=== PATIENT | female | born 1990 | race Caucasian/White ===

== ENCOUNTER 2021-03-17 10:51 | Inpatient (IN) | payer MEDICAID, SELFPAY ==
[~2021-03-17] VITALS: Ht 165.1 cm; Wt 101.6 kg
[2021-03-17] MEDS ORDERED: LACTATED RINGERS 500 ML IV SCH (12:00)
[2021-03-17] MEDS ORDERED: LACTATED RINGERS 1,000 ML IV SCH (12:00)
[2021-03-17] MEDS ORDERED: METHYLERGONOVINE 0.2 MG/ML AMP IM PRN ×2 (12:00→21:45)
[2021-03-17] MEDS ORDERED: OXYTOCIN 10 UNITS/ML VIAL IM SCH (12:00)
[2021-03-17] MEDS ORDERED: CARBOPROST 250 MCG/ML AMP IM PRN (12:00)
[2021-03-17] MEDS ORDERED: PREN-497 PO (12:47)
[2021-03-17 12:55] LABS: BILIRUBIN,URINE NEGATIVE (NEGATIVE); BLOOD, URINE 1+ (NEGATIVE); COLOR,URINE YELLOW (YELLOW); LEUKOCYTE ESTERASE ,URINE NEGATIVE (NEGATIVE); UGLUCOSE NEGATIVE (NEGATIVE)
[2021-03-17 13:08] LABS: BARBITURATE, URINE NEGATIVE ng/ml (NEG <=200); BENZODIAZEPINE, URINE NEGATIVE ng/mL (NEG <=200); CANNABINOID, URINE NEGATIVE ng/mL (NEG <=50); COCAINE, URINE NEGATIVE ng/mL (NEG <=300); OPIATE, URINE NEGATIVE ng/mL (NEG <=2000); PHENCYCLIDINE SCREEN,URINE NEGATIVE ng/mL (NEG <=25)
[2021-03-17 13:13] LABS: WBC,URINE 0-5 /HPF (0-5)
[2021-03-17 13:15] LABS: ALBUMIN 2.4 g/dL (3.4-5.0); ANION GAP 14.8 (8-16); BASOPHILS # (AUTO) 0.1 K/uL (0.00-0.22); BASOPHILS % (AUTO) 0.5 % (0.0-2.0); CARBON DIOXIDE 21.1 mmol/L (21-32); CREATININE 0.6 mg/dL (0.6-1.3); EOSINOPHILS # (AUTO) 0.3 K/uL (0-0.4); EOSINOPHILS % (AUTO) 2.5 % (0.0-4.0); HEMATOCRIT 36.2 % (36-48); HEMOGLOBIN 12.1 g/dL (12.0-16.0); LYMPHOCYTES # (AUTO) 2.9 K/uL (2.5-16.5); LYMPHOCYTES % (AUTO) 23.3 % (20.5-51.1); MEAN CORPUSCULAR HEMOGLOBIN 29 pg (27-31); MEAN CORPUSCULAR HGB CONC 33 g/dL (33-37); MEAN CORPUSCULAR VOLUME 86.1 fL (80-94); MONOCYTES # (AUTO) 0.5 K/uL (0.8-1.0); MONOCYTES % (AUTO) 4.1 % (1.7-9.3); NEUTROPHILS # (AUTO) 8.8 K/uL (1.8-7.7); NEUTROPHILS % (AUTO) 69.6 % (42.2-75.2); PLATELET COUNT (AUTO) 228 K/uL (140-450); POTASSIUM 3.9 mmol/L (3.5-5.1); RED BLOOD CELL COUNT(AUTO) 4.21 MIL/uL (4.20-5.40); RED CELL DISTRIBUTION WIDTH 13.6 % (11.6-13.7); TOTAL BILIRUBIN 0.2 mg/dL (0.0-1.0); WHITE BLOOD COUNT (AUTO) 12.6 K/uL (4.8-10.8)
[2021-03-17 13:18] LABS: APPEARANCE,URINE SLIGHTLY HAZY (CLEAR); NITRITE, URINE NEGATIVE (NEGATIVE)
[2021-03-17] MEDS ORDERED: OXYTOCIN 20 UNITS/LR PREMIX 1,000 ML IV ONE (15:00)
[2021-03-17] MEDS: NALBUPHINE 10 MG/ML AMP IVP PRN ×2 (17:05→20:33)
[2021-03-17] MEDS: PROMETHAZINE 25 MG/ML VIAL IVP PRN ×2 (17:05→20:34)
[2021-03-17] MEDS ORDERED: BENZOCAINE/MENTHOL 20%-0.5% 60 GM CAN TP PRN (21:45)
[2021-03-17] MEDS ORDERED: IBUPROFEN 600 MG TAB PO PRN (21:45)
[2021-03-17] MEDS ORDERED: METHYLERGONOVINE 0.2 MG TAB PO PRN (21:45)
[2021-03-17] MEDS ORDERED: bisacodyL 5 MG TABEC PO PRN (21:45)
[2021-03-17] MEDS ORDERED: OXYTOCIN 10 UNITS/ML VIAL IM PRN (21:45)
[2021-03-17] MEDS ORDERED: SIMETHICONE 80 MG TAB.CHEW PO PRN (21:45)
[2021-03-17] MEDS ORDERED: MEASLES, MUMPS, AND RUBELLA 1 VIAL SQVAC ONE (21:45)
[2021-03-17] MEDS ORDERED: DOCUSATE SODIUM 100 MG GELCAP PO PRN (21:45)
[2021-03-18] MEDS: IBUPROFEN 800 MG TAB PO PRN ×3 (08:15→21:02)
--- NOTE | 2021-03-18 08:57 | NUR ---
PATIENT HAS BEEN SCREENED AND CATEGORIZED LOW NUTRITION RISK. PATIENT WILL BE SEEN WITHIN 7 DAYS OF ADMISSION. 03/23/[address]
[2021-03-18 09:50] LABS: HEMATOCRIT 33.1 % (36-48); HEMOGLOBIN 10.8 g/dL (12.0-16.0)
[2021-03-19] MEDS: IBUPROFEN 800 MG TAB PO PRN ×2 (04:18→13:06)
[2021-03-19] MEDS ORDERED: FERR325E14 PO (11:25)
[2021-03-19] MEDS ORDERED: IBUP-2213 PO (11:28)
== END 2021-03-19 20:55 | disposition home or self-care (01) | DRG 560 ==
LOC: MLD 10:51 → OBSVTOIN 10:51 → MFCC 10:53
PROVIDERS: ADMIT Obstetrics & Gynecology; ATTEND Obstetrics & Gynecology
PROC: 10E0XZZ Delivery of Products of Conception, External Approach (ICD-10-PCS; principal; 2021-03-17)
PROC: 3E0134Z Introduction of Serum, Toxoid and Vaccine into Subcutaneous Tissue, Percutaneous Approach (ICD-10-PCS; 2021-03-17)
PROC: 3E0234Z Introduction of Serum, Toxoid and Vaccine into Muscle, Percutaneous Approach (ICD-10-PCS; 2021-03-17)
DX: O69.81X0 Labor and delivery complicated by cord around neck, without compression, not applicable or unspecified (principal); Z37.0 Single live birth; Z20.822 Contact with and (suspected) exposure to COVID-19; Z3A.37 37 weeks gestation of pregnancy; Z88.0 Allergy status to penicillin; Z91.030 Bee allergy status; Z23 Encounter for immunization
CPT/HCPCS: 36415; 59409; 80053; 80305; 81001; 85018; 85025; 86592; 86886; 86900; 86901; J2300; J2550; J2590